=== PATIENT | male | born 1935 | race Caucasian/White ===

== ENCOUNTER 2016-07-14 06:59 | Observation (INO) | payer MEDICARE, OTHER ==
[2016-07-14] MEDS ORDERED: SODIUM CHLORIDE 0.9% 1,000 ML IV ONE ×3 (07:34→10:38)
[2016-07-14] MEDS ORDERED: KETOROLAC 15 MG/ML VIAL IVP STA (07:34)
[2016-07-14] MEDS ORDERED: ACETAMINOPHEN 1,000 MG/100 ML 100 ML IV STA (07:34)
[2016-07-14] MEDS ORDERED: ACETAMINOPHEN 1,000 MG/100 ML 100 ML IV ONE (07:47)
[2016-07-14] MEDS ORDERED: KETOROLAC 30 MG/ML VIAL ONE (07:47)
[2016-07-14] MEDS ORDERED: POTASSIUM BICARB 25 MEQ TABLET PO STA (08:59)
[2016-07-14] MEDS ORDERED: MAGNESIUM SULFATE 2 GRAM 50 ML IV ONE ×3 (08:59→19:06)
[2016-07-14] MEDS ORDERED: POTASSIUM BICARB 25 MEQ TABLET PO ONE (09:09)
[2016-07-14] MEDS ORDERED: DEXAMETHASONE 10 MG/ML VIAL IVP STA (09:23)
[2016-07-14] MEDS ORDERED: DEXAMETHASONE 10 MG/ML VIAL ONE (09:34)
[2016-07-14] MEDS ORDERED: DIVALPROEX DR 125 MG TABLET PO STA (10:38)
[2016-07-14] MEDS ORDERED: ONDANSETRON 4 MG/2 ML VIAL IVP PRN (12:55)
[2016-07-14] MEDS ORDERED: SODIUM CHLORIDE FLUSH 0.9% 10 ML SYRINGE IVP PRN (12:55)
[2016-07-14] MEDS ORDERED: ACETAMINOPHEN 325 MG TABLET PO PRN (12:55)
[2016-07-14] MEDS ORDERED: ZOLPIDEM 5 MG TABLET PO PRN (12:55)
[2016-07-14] MEDS ORDERED: IPRATROPIUM/ALBUTEROL 3 ML NEB INH PRN (12:55)
[2016-07-14] MEDS: MAGNESIUM OXIDE 400 MG TABLET PO SCH (13:33)
[2016-07-14] MEDS: SODIUM CHLORIDE 0.9% 1,000 ML IV SCH (13:39)
[2016-07-14] MEDS ORDERED: POTASSIUM CHLORIDE 20 MEQ TABLET PO ONE (14:00)
[2016-07-14] MEDS: SODIUM CHLORIDE FLUSH 0.9% 10 ML SYRINGE IVP SCH ×2 (14:06→20:21)
[2016-07-14] MEDS: OSELTAMIVIR 30 MG CAPSULE PO SCH ×2 (14:48→20:21)
[2016-07-14] MEDS: POTASSIUM CHLOR 10 MEQ/100 ML 100 ML IV SCH ×3 (20:19→23:45)
[2016-07-14] MEDS: OXYBUTYNIN 5MG TABLET PO SCH (20:20)
[2016-07-14] MEDS: TOPIRAMATE 100 MG TABLET PO SCH (20:20)
[2016-07-14] MEDS: levETIRAcetam 250 MG TABLET PO SCH (20:20)
[2016-07-14] MEDS: ATENOLOL 25 MG TABLET PO SCH (20:21)
[2016-07-14] MEDS: DOXAZOSIN 4 MG TABLET PO SCH (20:21)
[2016-07-14] MEDS: DIVALPROEX ER 250 MG TABLET PO SCH (20:21)
[2016-07-14] MEDS ORDERED: levETIRAcetam 250 MG TABLET PO SCH (21:00)
[2016-07-14] MEDS ORDERED: DIVALPROEX DR 250 MG TABLET PO SCH (21:00)
[2016-07-15] MEDS: SODIUM CHLORIDE 0.9% 1,000 ML IV SCH ×2 (02:14→11:08)
[2016-07-15] MEDS: SODIUM CHLORIDE FLUSH 0.9% 10 ML SYRINGE IVP SCH ×3 (06:35→20:44)
[2016-07-15] MEDS: PANTOPRAZOLE 40 MG TABLET PO SCH (06:35)
[2016-07-15] MEDS ORDERED: TOPIRAMATE 100 MG TABLET PO SCH (09:00)
[2016-07-15] MEDS ORDERED: POLYETHYLENE GLYCOL 3350 17 GM PACKET PO SCH (09:00)
[2016-07-15] MEDS ORDERED: DOXAZOSIN 1 MG TABLET PO SCH (09:00)
[2016-07-15] MEDS: MAGNESIUM OXIDE 400 MG TABLET PO SCH (10:56)
[2016-07-15] MEDS: MULTIVITAMIN TABLET PO SCH (10:57)
[2016-07-15] MEDS: ASPIRIN EC 81 MG TABLET PO SCH (10:58)
[2016-07-15] MEDS: ATENOLOL 25 MG TABLET PO SCH ×2 (10:58→20:35)
[2016-07-15] MEDS: DIVALPROEX ER 250 MG TABLET PO SCH ×2 (10:59→20:35)
[2016-07-15] MEDS: OSELTAMIVIR 30 MG CAPSULE PO SCH ×2 (10:59→20:35)
[2016-07-15] MEDS: OXYBUTYNIN 5MG TABLET PO SCH ×2 (11:00→20:35)
[2016-07-15] MEDS: ENOXAPARIN 40 MG/0.4 ML SYRINGE SUBQ SCH (11:02)
[2016-07-15] MEDS: levETIRAcetam 250 MG TABLET PO SCH ×2 (12:42→20:34)
[2016-07-15] MEDS: DOXAZOSIN 4 MG TABLET PO SCH (20:35)
[2016-07-15] MEDS: TOPIRAMATE 100 MG TABLET PO SCH (20:35)
[2016-07-16] MEDS: HYDROcod/ACETAM 5/325 MG TABLET PO PRN ×2 (00:47→06:32)
[2016-07-16] MEDS: PANTOPRAZOLE 40 MG TABLET PO SCH (06:32)
[2016-07-16] MEDS: SODIUM CHLORIDE FLUSH 0.9% 10 ML SYRINGE IVP SCH (06:32)
[2016-07-16] MEDS ORDERED: POTASSIUM CHLORIDE 20 MEQ TABLET PO SCH (08:00)
[2016-07-16] MEDS: DIVALPROEX ER 250 MG TABLET PO SCH (08:19)
[2016-07-16] MEDS: ASPIRIN EC 81 MG TABLET PO SCH (08:19)
[2016-07-16] MEDS: MULTIVITAMIN TABLET PO SCH (08:19)
[2016-07-16] MEDS: OXYBUTYNIN 5MG TABLET PO SCH (08:19)
[2016-07-16] MEDS: ENOXAPARIN 40 MG/0.4 ML SYRINGE SUBQ SCH (08:20)
[2016-07-16] MEDS: OSELTAMIVIR 30 MG CAPSULE PO SCH (08:20)
[2016-07-16] MEDS: ATENOLOL 25 MG TABLET PO SCH (08:20)
[2016-07-16] MEDS: levETIRAcetam 250 MG TABLET PO SCH (12:25)
[2016-07-16] MEDS ORDERED: CALCIUM CARBONATE CHEW 500 MG TABLET PO SCH (14:00)
== END 2016-07-16 15:45 | disposition home or self-care (01) ==
DX: R55 Syncope and collapse (principal); J10.1 Influenza due to other identified influenza virus with other respiratory manifestations; E86.0 Dehydration; G40.89 Other seizures; E87.6 Hypokalemia; J44.9 Chronic obstructive pulmonary disease, unspecified; I10 Essential (primary) hypertension; T42.6X6A Underdosing of other antiepileptic and sedative-hypnotic drugs, initial encounter; Z91.19 Patient's noncompliance with other medical treatment and regimen; Y92.009 Unspecified place in unspecified non-institutional (private) residence as the place of occurrence of the external cause; Z79.82 Long term (current) use of aspirin; Z79.51 Long term (current) use of inhaled steroids; Z79.899 Other long term (current) drug therapy
CPT/HCPCS: 36415; 71020; 80053; 80164; 83605; 83690; 83735; 84100; 84484; 85025; 87275; 87276; 93005; 93306; 96361; 96365; 96366; 96372; 96375; 97001; 97116; 97530; 99284; 99285; A9270; G0378; J0131; J1650

== ENCOUNTER 2019-01-07 17:47 | Outpatient (CLI) | payer MEDICARE, OTHER | END 2019-01-07 17:48 | disposition critical access hospital (66) | LOC: EMS 17:47 | PROVIDERS: ATTEND Surgery | DX: M79.89 Other specified soft tissue disorders (principal); M79.662 Pain in left lower leg; M79.661 Pain in right lower leg | CPT/HCPCS: A0425; A0429 ==

== ENCOUNTER 2019-01-07 18:10 | Inpatient (IN) | payer MEDICARE, OTHER ==
[2019-01-07] MEDS ORDERED: cefTRIAXone 1 GM in SODIUM CHLORIDE 0.9% MINIBAG 100 ML IV STA (18:22)
--- NOTE | 2019-01-07 18:24 | ED Physician Documentation ---
PD HPI WOUND RECHECK - Stated complaint Stated Complaint: LLE CELLULITIS - Histroy obtained from History obtained from: Patient - History of Present Illness Location: Other (Since yesterday he is had swelling of both calves and weeping especially from the left from cellulitis. No fevers.) Timing - onset: Yesterday Associated symptoms: Redness, Swelling, Drainage, Pain. No: Fever Similar symptoms before: Has not had sx before Review of Systems Ten Systems: 10 systems reviewed and negative Constitutional: denies: Fever, Chills Cardiac: reports: Reviewed and negative Respiratory: reports: Reviewed and negative : reports: Reviewed and negative PD PAST MEDICAL HISTORY - Past Medical History Cardiovascular: Hypertension Respiratory: COPD Endocrine/Autoimmune: None GI: None : None HEENT: None Psych: None Musculoskeletal: None Derm: None - Past Surgical History General: Cholecystectomy Ortho: Arthroscopic surgery HEENT: Cataracts - Present Medications Home Medications: Ambulatory Orders Medication Instructions Recorded Confirmed RX: Aspirin [Aspir-Low] 81 mg PO DAILY 07/14/16 07/14/16 RX: Atenolol 25 mg PO BID 07/14/16 07/14/16 RX: Divalproex ER [Depakote ER] 250 mg PO BID 07/14/16 07/14/16 RX: Doxazosin [Cardura] 4 mg PO QPM 07/14/16 07/14/16 RX: Ipratropium [Atrovent] 2 puffs INH Q4H PRN 07/14/16 07/14/16 RX: Levetiracetam [Keppra] 1,000 mg PO DAILY@1200 07/14/16 07/14/16 RX: Levetiracetam [Keppra] 1,500 mg PO QPM 07/14/16 07/14/16 RX: Multivitamin [Multivitamins] 1 tab PO DAILY 07/14/16 07/14/16 RX: Omeprazole 20 mg PO BID 07/14/16 07/14/16 RX: Oxybutynin [Ditropan] 5 mg PO BID 07/14/16 07/14/16 RX: Topiramate [Topamax] 200 mg PO QPM 07/14/16 07/14/16 RX: Triamcinolone Acetonide 2 puffs INH DAILY PRN 07/14/16 07/14/16 [Nasacort] RX: hydroCHLOROthiazide 25 mg PO DAILY 07/14/16 07/14/16 [Hydrochlorothiazide] RX: Acetaminophen [Tylenol] 650 mg PO Q4HR PRN #0 tablet 07/16/16 RX: Multivitamin [Theragran] 1 tab PO DAILYWM tablet 07/16/16 RX: Oseltamivir [Tamiflu] 30 mg PO BID 4 Days cap 07/16/16 - Allergies Allergies/Adverse Reactions: Allergies Allergy/AdvReac Type Severity Reaction Status Date / Time Penicillins Allergy Unknown Verified 07/14/16 10:44 ketamine AdvReac Unknown Verified 07/14/16 10:44 - Social History Does the pt smoke?: No Smoking Status: Former smoker Does the pt drink ETOH?: No Does the pt have substance abuse?: No - Immunizations Immunizations: TDAP >10years/unknown - POLST Patient has POLST: No PD ED PE NORMAL - Vitals Vital signs reviewed: Yes - General General: Alert and oriented X 3, No acute distress - HEENT HEENT: PERRL, EOMI - Neck Neck: Supple, no meningeal sign, No bony TTP - Cardiac Cardiac: RRR, No murmur - Respiratory Respiratory: No respiratory distress, Clear bilaterally - Abdomen Abdomen: Normal bowel sounds, Non tender - Derm Derm: Normal color, Warm and dry - Extremities Extremities: Other (Weeping cellulitis of left worse than right since lower extremity with some pedal edema. No calf tenderness. \) - Neuro Neuro: Alert and oriented X 3, Normal speech Results - Vitals Vitals: Vital Signs - 24 hr 01/07/19 01/07/19 01/07/19 18:22 18:28 20:14 Temperature 36.7 C Heart Rate 64 61 Respiratory 12 14 Rate Blood Pressure 167/74 H 156/76 H O2 Saturation 99 100 Oxygen O2 Source Room air - Labs Labs: Laboratory Tests 01/07/19 01/07/19 01/07/19 18:40 18:40 18:40 WBC 16.2 H RBC 3.35 L Hgb 9.6 L Hct 31.6 L MCV 94.3 H MCH 28.7 MCHC 30.4 L RDW 18.9 H Plt Count 185 MPV 11.1 Neut # (Auto) 15.2 H Lymph # (Auto) 0.6 L [place] # (Auto) 0.3 Eos # (Auto) 0.0 Baso # (Auto) 0.0 Absolute Nucleated RBC 0.00 Nucleated RBC % 0.0 Sodium 142 Potassium 4.2 Chloride 106 Carbon Dioxide 26 Anion Gap 10.0 BUN 47 H Creatinine 1.4 H Estimated GFR (MDRD) 49 L Glucose 156 H Lactic Acid Calcium 9.2 Total Bilirubin 0.5 AST 16 ALT 14 Alkaline Phosphatase 82 B-Natriuretic Peptide 90 Total Protein 6.0 L Albumin 3.0 L Globulin 3.0 Albumin/Globulin Ratio 1.0 Lipase 26 Blood Type Blood Type Recheck Antibody Screen Crossmatch IS Only 01/07/19 01/07/19 01/07/19 18:40 20:05 20:10 WBC RBC Hgb Hct MCV MCH MCHC RDW Plt Count MPV Neut # (Auto) Lymph # (Auto) [place] # (Auto) Eos # (Auto) Baso # (Auto) Absolute Nucleated RBC Nucleated RBC % Sodium Potassium Chloride Carbon Dioxide Anion Gap BUN Creatinine Estimated GFR (MDRD) Glucose Lactic Acid 1.0 Calcium Total Bilirubin AST ALT Alkaline Phosphatase B-Natriuretic Peptide Total Protein Albumin Globulin Albumin/Globulin Ratio Lipase Blood Type O POSITIVE Blood Type Recheck O POSITIVE Antibody Screen NEGATIVE Crossmatch IS Only See Detail PD MEDICAL DECISION MAKING - ED course ED course: 83-year-old gentleman presents with weeping cellulitis of both legs, left worse than right. He is found to have an elevated white blood cell count at 16,000 and a hemoglobin of 9.9, his baseline hemoglobin per old records is around 13. His BUN is up but his creatinine is stable. A rectal examination was done showing brown but very guaiac positive stool but without melena or right red blood. Spoke with the on-call surgeon, Dr. Enmanuel Spence who will consult if his hemoglobin trends down, otherwise feels like it is an outpatient work-up. Blood was readied but he does not need transfusion at this juncture. He was administered IV Protonix. Spoke with Dr. Rubio for admission at 7:58 PM. Departure - Departure Disposition: [facility] DC/Xfer Clinical Impression: Cellulitis, Occult GI bleeding Condition: Stable Discharge Date/Time: 01/07/19 21:10
[2019-01-07 18:49] LABS: BASOPHILS % (AUTO) 0.1 %; EOSINOPHILS % (AUTO) 0.2 %; HGB - HEMOGLOBIN 9.6 g/dL (14.0-18.0); LYMPHOCYTES # (AUTO) 0.6 10^3/uL (1.5-3.5); LYMPHOCYTES % (AUTO) 3.8 %; MEAN CORPUSCULAR HEMOGLOBIN 28.7 pg (27.0-31.0); MEAN CORPUSCULAR HGB CONC 30.4 g/dL (32.0-36.0); MEAN CORPUSCULAR VOLUME 94.3 fL (80.0-94.0); MEAN PLATELET VOLUME 11.1 fL (7.4-11.4); MONOCYTES # (AUTO) 0.3 10^3/uL (0.0-1.0); MONOCYTES % (AUTO) 1.5 %; NEUTROPHILS # (AUTO) 15.2 10^3/uL (1.5-6.6); NEUTROPHILS % (AUTO) 93.4 %; PLT - PLATELET COUNT 185 10^3/uL (130-450); RED BLOOD COUNT 3.35 10^6/uL (4.70-6.10); RED CELL DISTRIBUTION WIDTH 18.9 % (12.0-15.0); WHITE BLOOD COUNT 16.2 x10^3/uL (4.8-10.8)
[2019-01-07 19:02] LABS: BILIRUBIN,TOTAL 0.5 mg/dL (0.2-1.0); CALCIUM 9.2 mg/dL (8.5-10.3); CREATININE 1.4 mg/dL (0.6-1.2)
[2019-01-07] MEDS ORDERED: PANTOPRAZOLE 40 MG VIAL IVP STA (19:51)
--- NOTE | 2019-01-07 19:59 | Ultrasound Report ---
Reason: B leg swelling Procedure Date: 01/07/2019 Accession Number: [id number] / [id number] Procedure: US - Duplex Ext Veins Bilateral CPT Code: FULL RESULT: EXAM: BILATERAL LOWER EXTREMITY VENOUS ULTRASOUND EXAM DATE: 01/07/2019 07:33 PM. CLINICAL HISTORY: Lower extremity swelling COMPARISON: None. TECHNIQUE: Real-time sonographic vascular imaging was performed by the photography teacher through the lower extremities utilizing both color-flow and Doppler spectral analysis. Multiple personnel representative static images were saved for review. FINDINGS: Right: Common Femoral Vein (CFV): Normal. CFV-GSV Junction: Normal. Profunda Femoral Vein (PFV): Normal. Femoral Vein (FV) Prox: Normal. Femoral Vein (FV) Mid: Normal. Femoral Vein (FV) Dist: Normal. Popliteal Vein: Normal. Posterior Tibial Veins: Normal. Peroneal Veins: Normal. Left: Common Femoral Vein (CFV): Normal. CFV-GSV Junction: Normal. Profunda Femoral Vein (PFV): Normal. Femoral Vein (FV) Prox: Normal. Femoral Vein (FV) Mid: Normal. Femoral Vein (FV) Dist: Normal. Popliteal Vein: Normal. Posterior Tibial Veins: Normal. Peroneal Veins: Normal. Other: There is lower extremity edema. IMPRESSION: No evidence for deep venous thrombosis bilaterally. RADIA
[2019-01-07] MEDS ORDERED: ONDANSETRON ODT 4 MG TABLET TL PRN (20:20)
[2019-01-07] MEDS ORDERED: PROCHLORPERAZINE 10 MG/2 ML VIAL IVP PRN (20:20)
[2019-01-07] MEDS ORDERED: FUROSEMIDE 20 MG/2 ML VIAL IVP STA (20:39)
[2019-01-07] MEDS ORDERED: IPRATROPIUM/ALBUTEROL 3 ML NEB INH PRN (20:41)
--- NOTE | 2019-01-07 20:52 | HISTORY & PHYSICAL EXAMINATION ---
Chief Complaint - Chief Complaint Chief Complaint: Shortness of breath, Bilateral leg swelling, Fatigue and weakness History of Present Illness - Admitted From Admitted From:: ED - History Obtained From Records Reviewed: yes History obtained from: patient Exam Limitations: none - History of Present Illness HPI Comment/Other: This is a 83-year-old with a past medical history of hypertension, COPD, seizure disorder, abdominal surgery that consisted of a perforated small bowel as a result of multiple abscesses 2 years prior, surgeries performed in [place], history of nephrolithiasis, chronic kidney disease stage III, who presents with approximately 1 day history of bilateral lower extremity swelling with associated numbness, pain to left more than right, without any history of trauma, Mentions some orthopnea with dyspnea on exertion without chest pain. Patient states that he has been feeling some weakness as of late with no mention of melena, hematochezia, hematemesis. Patient denies drinking and has never had a colonoscopy. Patient mentions left more than right swelling without redness. Patient was given 1 dose of IV Rocephin in the ED, CBC shows a WBC count of 16.2, hemoglobin 9.9 with a baseline of 13.1 and macrocytosis, ultrasound did not reveal DVT. Creatinine was at 1.4 with a baseline ranging between 1.3-1.7, BNP 90, LFTs within normal limits. On examination bilateral lower extremity weepiness with some serous fluid, unable to ascertain 2+ pulses dorsalis pedis due to market pedal edema. Surgery was called for patient's guaiac positive and recommendations for serial monitoring. IV PPI given in ED and to be continued, admission warranted. History - Past Medical History Cardiovascular: reports: Hypertension Respiratory: reports: COPD Endocrine/Autoimmune: reports: None GI: reports: None : reports: None HEENT: reports: None Psych: reports: None Musculoskeletal: reports: None Derm: reports: None MRSA Hx?: No - Past Surgical History General: reports: Cholecystectomy, Other (Abscesses to small intestine with perforation and resection in [place] 2yrs prior) Ortho: reports: Arthroscopic surgery HEENT: reports: Cataracts - POLST Patient has POLST: No Meds/Allgy - Home Medications Home Medications: Ambulatory Orders Medication Instructions Recorded Confirmed Aspirin [Aspir-Low] 81 mg PO DAILY 07/14/16 07/14/16 Atenolol 25 mg PO BID 07/14/16 07/14/16 Divalproex ER [Depakote ER] 250 mg PO BID 07/14/16 07/14/16 Doxazosin [Cardura] 4 mg PO QPM 07/14/16 07/14/16 Ipratropium [Atrovent] 2 puffs INH Q4H PRN 07/14/16 07/14/16 Levetiracetam [Keppra] 1,000 mg PO DAILY@1200 07/14/16 07/14/16 Levetiracetam [Keppra] 1,500 mg PO QPM 07/14/16 07/14/16 Multivitamin [Multivitamins] 1 tab PO DAILY 07/14/16 07/14/16 Omeprazole 20 mg PO BID 07/14/16 07/14/16 Oxybutynin [Ditropan] 5 mg PO BID 07/14/16 07/14/16 Topiramate [Topamax] 200 mg PO QPM 07/14/16 07/14/16 Triamcinolone Acetonide [Nasacort] 2 puffs INH DAILY PRN 07/14/16 07/14/16 hydroCHLOROthiazide 25 mg PO DAILY 07/14/16 07/14/16 [Hydrochlorothiazide] Acetaminophen [Tylenol] 650 mg PO Q4HR PRN #0 tablet 07/16/16 Multivitamin [Theragran] 1 tab PO DAILYWM tablet 07/16/16 Oseltamivir [Tamiflu] 30 mg PO BID 4 Days cap 07/16/16 - Allergies Allergies/Adverse Reactions: Allergies Allergy/AdvReac Type Severity Reaction Status Date / Time Penicillins Allergy Unknown Verified 07/14/16 10:44 ketamine AdvReac Unknown Verified 07/14/16 10:44 Review of Systems - All Other Systems All Other Systems: reports: Reviewed and negative Prior Level of Functionality: Patient's prior functional capacity and home ADLs adequate Exam - Vital Signs Reviewed Vital Signs: Yes Vital Signs: Vital Signs x48h Temp Pulse Resp BP Pulse Ox 01/07/19 20:14 61 14 156/76 H 100 01/07/19 18:28 36.7 C 01/07/19 18:22 64 12 167/74 H 99 - Physical Exam General Appearance: positive: No acute distress, Alert, Other (Weakness) Eyes Bilateral: positive: Normal inspection, PERRL, EOMI, Other (Mild conjunctival pallor). negative: No scleral icterus ENT: positive: ENT inspection nml, Pharynx nml, No signs of dehydration Neck: positive: Nml inspection, Thyroid nml, No JVD, Trachea midline. negative: Thyromegaly Respiratory: positive: Chest non-tender, No respiratory distress, Rales (Faint bibasilar rales) Cardiovascular: positive: Regular rate & rhythm, No gallop Peripheral Pulses: positive: 0, Other (Unable to ascertain due to pedal edema) Abdomen: positive: Non-tender, No organomegaly, Nml bowel sounds, No distention. negative: Tenderness Skin: positive: No rash, Pallor, Other (Cool to bilateral lower extremities. Weeping bilateral lower extremity serous appearance) Extremities: positive: Full ROM, Pedal edema, Other (Left greater than right weeping serous discharge without necrotic ulcerations left greater than right.). negative: Calf tenderness, Joint swelling, Dulce's sign/cords Neurologic/Psychiatric: positive: Oriented x3, CN's nml (2-12) Sepsis Event Note (H) - Evaluation Possible source of Sepsis: positive: Skin/soft tissue - Sepsis Criteria Sepsis Criteria: WBC count greater than 12,000 or less than 4000 Conclusion/Plan - Problem List (1) Bilateral lower extremity edema Conclusion/Plan: Patient presenting with bilateral lower extremity numbness with associated edema which initially thought to be cellulitis given the white count at 16 K, pain to left lower extremity with an ultrasound showing negative. Unclear at this point if this is infection. However, was given 1 dose of Rocephin IV. 2 sets of blood cultures obtained. Patient does not have a fever or other signs and symptoms of sepsis at this point. Likely pointing in the direction of underlying peripheral arterial disease combined with pedal edema that may come from diastolic heart failure despite BNP of 90. Echocardiogram to follow. Contraindication for SCDs in the setting of edema as well as heparin in the setting of patient's anemia. Placed on Lasix 40 mg p.o. daily. Wound care to follow, as well as arterial doppler with flow. (2) Interstitial edema Conclusion/Plan: Patient's chest x-ray shows right midlung interstitial edema. In the setting of an elevated white count this may represent pneumonia, however patient denies fever cough and does mention shortness of breath and dyspnea on exertion that may be related to diastolic heart failure. Patient will be on Lasix for diuresis. Echocardiogram to follow. Defer off IV antibiotics for now. Qualifiers: Edema type: unspecified Qualified Code(s): R60.9 - Edema, unspecified (3) Occult GI bleeding Conclusion/Plan: Patient does have a history of abdominal surgeries in the past, Including small bowel resection for prior abscesses, in [place], [place] 2 years prior. Patient denies having a prior endoscopy or colonoscopy in the past. Guaiac positive in the ER, may be related to internal hemorrhoids versus chronic GI blood loss anemia. Patient's prior hemoglobin was 13.1. Would defer off aspirin or DVT prophylaxis with heparin/Lovenox for now. Would place on IV PPI plus Carafate. General surgery to consult for possible colonoscopy if drops in H&H observed. (4) Chronic kidney disease, stage III (moderate) Conclusion/Plan: Patient's prior baseline is 1.3-1.7. Avoid nephrotoxic agents, h ydrochlorothiazide on hold, will be on Lasix due to pedal edema, correct underlying electrolyte disturbances. (5) General weakness Conclusion/Plan: Multifactorial at this point. Work-up in progress. Consider PT/OT. (6) Hypertension, uncontrolled Conclusion/Plan: Will place on IV hydralazine prn and depending if diastolic heart failure is underlying, may benefit from afterload reduction. (7) Macrocytic anemia Conclusion/Plan: Guaiac positive in the ED. Multifactorial with possible underlying anemia of chronic disease. Will check TSH, iron, B12, folic acid. Will check TSH, iron, B12, folic acid. Transfuse <8 g/dl for now. (8) Advanced care planning/counseling discussion Conclusion/Plan: Advance care planning with medical conditions, goal of care and trajectory of illness discussed and has elected on full code status for reversible causes of illnesses. - Lab Results Lab results reviewed: Yes Fish Bones: 01/07/19 18:40 01/07/19 18:40 - Diagnostic Imaging Results Diagnostic Imaging Results: positive: Final report reviewed - EKG Results EKG Interpreted Independently: No
--- NOTE | 2019-01-07 21:39 | XRAY Report ---
Reason: rales with SOB Procedure Date: 01/07/2019 Accession Number: [id number] / [id number] Procedure: XR - Chest 1 View X-Ray CPT Code: 98515 FULL RESULT: EXAM: CHEST RADIOGRAPHY EXAM DATE: 01/07/2019 09:31 PM. CLINICAL HISTORY: Rales with SOB. COMPARISON: CHEST 2 VIEW PA/LAT 07/14/2016 8:32 AM. TECHNIQUE: 1 view. FINDINGS: Lungs/Pleura: The lungs are hyperinflated. There are bullae and blebs. There is an new interstitial infiltrate in the right mid lung. There are no pleural effusions. Mediastinum: Within exam limitations, the cardiomediastinal contour is normal. Other: None. IMPRESSION: 1. Hyperinflated lungs. 2. Interstitial infiltrate in the right mid lung new compared to the prior exam. RADIA
[2019-01-07] MEDS: SUCRALFATE 1 GM/10 ML UDC PO SCH (22:02)
[2019-01-07] MEDS ORDERED: hydrALAZINE INJ 20 MG/ML VIAL IVP PRN (22:37)
[2019-01-08 05:56] LABS: ALBUMIN 2.7 g/dL (3.2-5.5); CREATININE 1.4 mg/dL (0.6-1.2); PHOSPHORUS 3.3 mg/dL (2.5-4.6)
[2019-01-08 05:57] LABS: BASOPHILS % (AUTO) 0.1 %; EOSINOPHILS # (AUTO) 0.1 10^3/uL (0.0-0.7); EOSINOPHILS % (AUTO) 0.5 %; HGB - HEMOGLOBIN 8.8 g/dL (14.0-18.0); LYMPHOCYTES # (AUTO) 1.2 10^3/uL (1.5-3.5); MEAN CORPUSCULAR HEMOGLOBIN 28.1 pg (27.0-31.0); MEAN CORPUSCULAR HGB CONC 30.6 g/dL (32.0-36.0); MEAN PLATELET VOLUME 11.5 fL (7.4-11.4); MONOCYTES # (AUTO) 0.8 10^3/uL (0.0-1.0); MONOCYTES % (AUTO) 5.7 %; NEUTROPHILS # (AUTO) 12.2 10^3/uL (1.5-6.6); NEUTROPHILS % (AUTO) 84.9 %; PLT - PLATELET COUNT 180 10^3/uL (130-450); RED BLOOD COUNT 3.13 10^6/uL (4.70-6.10); RED CELL DISTRIBUTION WIDTH 18.7 % (12.0-15.0); WHITE BLOOD COUNT 14.3 x10^3/uL (4.8-10.8)
[2019-01-08 06:10] LABS: % IRON SATURATION 13 % (20-50); IRON 36 ug/dL (45-182); TOTAL IRON BINDING CAPACITY 274 ug/dL (250-450); TRANSFERRIN 196 mg/dL (180-329)
[2019-01-08 06:17] LABS: THYROID STIMULATING HORMONE 2.73 uIU/mL (0.34-5.60)
[2019-01-08 06:28] LABS: FOLATE 11.13 ng/mL (5.90 - >24.8)
[2019-01-08] MEDS: PANTOPRAZOLE 40 MG VIAL IVP SCH (08:03)
[2019-01-08] MEDS: SUCRALFATE 1 GM/10 ML UDC PO SCH ×4 (08:03→21:14)
[2019-01-08] MEDS: SODIUM CHLORIDE FLUSH 0.9% 10 ML SYRINGE IVP SCH ×3 (08:03→17:11)
--- NOTE | 2019-01-08 08:19 | PROVIDER PROGRESS NOTE ---
Subjective - Prog Note Date Prog Note Date: 01/08/19 Prog Note Time: 08:36 - Subjective Pt reports feeling: No change Subjective: he's tired. legs have been hurting so much for 3 days and now leg cramps are "killing" him. Current Medications - Current Medications Current Medications: Active Medications Hydrocodone Bitart/Acetaminophen (Elkins 5/325) 1 tab PO Q4HR PRN PRN Reason: PAIN Albuterol/Ipratropium (Duoneb) 3 ml INH Q4HR PRN PRN Reason: Wheezing Amlodipine Besylate (Norvasc) 5 mg PO DAILY [facility] Doxazosin Mesylate (Cardura) 4 mg PO QPM [facility] Furosemide (Lasix) 40 mg PO DAILY [facility] Hydralazine HCl (Apresoline Inj) 10 mg IVP Q4HR PRN PRN Reason: sbp>160 Magnesium Sulfate 1 gm/ Sodium (Chloride) 52 mls @ 54 mls/hr IV ONCE ONE Stop: 01/08/19 09:33 Ondansetron HCl (Zofran Odt) 4 mg TL Q6HR PRN PRN Reason: Nausea / Vomiting Pantoprazole Sodium (Protonix) 40 mg IVP QDAC [facility] Last Admin: 01/08/19 08:03 Dose: Not Given Polyethylene Glycol (Miralax) 17 gm PO DAILY [facility] Prochlorperazine Edisylate (Compazine Inj) 10 mg IVP Q6HR PRN PRN Reason: Nausea / Vomiting Sodium Chloride (Normal Saline Flush 0.9%) 10 ml IVP PRN PRN PRN Reason: NEEDED PER PROVIDER ORDERS Sodium Chloride (Normal Saline Flush 0.9%) 10 ml IVP 0100,0900,1700 [facility] Last Admin: 01/08/19 08:03 Dose: Not Given Sucralfate (Carafate) 1 gm PO 0700,1100,1600,2200 [facility] Last Admin: 01/08/19 08:03 Dose: Not Given Aspirin [Aspir-Low] 81 mg PO DAILY 07/14/16 Atenolol 25 mg PO BID 07/14/16 Divalproex ER [Depakote ER] 250 mg PO BID 07/14/16 Doxazosin [Cardura] 4 mg PO QPM 07/14/16 Ipratropium [Atrovent] 2 puffs INH Q4H PRN 07/14/16 Levetiracetam [Keppra] 1,000 mg PO DAILY@1200 07/14/16 Levetiracetam [Keppra] 1,500 mg PO QPM 07/14/16 Multivitamin [Multivitamins] 1 tab PO DAILY 07/14/16 Omeprazole 20 mg PO BID 07/14/16 Oxybutynin [Ditropan] 5 mg PO BID 07/14/16 Topiramate [Topamax] 200 mg PO QPM 07/14/16 Triamcinolone Acetonide [Nasacort] 2 puffs INH DAILY PRN 07/14/16 hydroCHLOROthiazide [Hydrochlorothiazide] 25 mg PO DAILY 07/14/16 Objective - Vital Signs/Intake & Output Reviewed Vital Signs: Yes Intake & Output: Intake & Output 01/05/19 01/06/19 01/07/19 01/08/19 23:59 23:59 23:59 23:59 Intake Total 100 Output Total 1205 Balance -1105 - Objective General Appearance: positive: Alert, Other (thin, small framed, thin balding elderly male with low, hoarse voice, glasses, grimacing w leg cramps) Eyes Bilateral: positive: PERRL ENT: positive: Pharynx nml Neck: positive: No JVD Respiratory: positive: Chest non-tender. negative: Wheezes, Rales, Rhonchi Cardiovascular: positive: Regular rate & rhythm, Systolic murmur. negative: G allop/S4, Friction rub Abdomen: positive: Non-tender, No organomegaly, Nml bowel sounds, No distention, Other (just finished most of his breakfast except for the waffle) Skin: positive: Other (legs with rubor/discoloration of shins. tight skin overal l, oozing legs. painful even to touch or move) Extremities: positive: Pedal edema (painful) Neurologic/Psychiatric: positive: Oriented x3, CN's nml (2-12), Motor nml - Lab Results Fish Bones: 01/08/19 05:15 01/08/19 05:15 Other Labs: Lab Results x24hrs 01/08/19 01/08/19 01/08/19 Range/Units 05:15 05:15 05:15 WBC 14.3 H (4.8-10.8) x10^3/uL RBC 3.13 L (4.70-6.10) 10^6/uL Hgb 8.8 L (14.0-18.0) g/dL Hct 28.8 L (42.0-52.0) % MCV 92.0 (80.0-94.0) fL MCH 28.1 (27.0-31.0) pg MCHC 30.6 L (32.0-36.0) g/dL RDW 18.7 H (12.0-15.0) % Plt Count 180 (130-450) 10^3/uL MPV 11.5 H (7.4-11.4) fL Neut # (Auto) 12.2 H (1.5-6.6) 10^3/uL Lymph # (Auto) 1.2 L (1.5-3.5) 10^3/uL [place] # (Auto) 0.8 (0.0-1.0) 10^3/uL Eos # (Auto) 0.1 (0.0-0.7) 10^3/uL Baso # (Auto) 0.0 (0.0-0.1) 10^3/uL Absolute Nucleated RBC 0.00 x10^3/uL Nucleated RBC % 0.0 /100WBC Sodium 144 (135-145) mmol/L Potassium 3.8 (3.5-5.0) mmol/L Chloride 106 (101-111) mmol/L Carbon Dioxide 30 (21-32) mmol/L Anion Gap 8.0 (6-13) BUN 46 H (6-20) mg/dL Creatinine 1.4 H (0.6-1.2) mg/dL Estimated GFR (MDRD) 49 L (>89) Glucose 107 H (70-100) mg/dL Lactic Acid (0.5-2.2) mmol/L Calcium 9.0 (8.5-10.3) mg/dL Phosphorus 3.3 (2.5-4.6) mg/dL Iron (45-182) ug/dL TIBC (250-450) ug/dL % Saturation (20-50) % Transferrin (180-329) mg/dL Total Bilirubin (0.2-1.0) mg/dL AST (10-42) IU/L ALT (10-60) IU/L Alkaline Phosphatase (42-121) IU/L B-Natriuretic Peptide (5-100) pg/mL Total Protein (6.7-8.2) g/dL Albumin 2.7 L (3.2-5.5) g/dL Globulin (2.1-4.2) g/dL Albumin/Globulin Ratio (1.0-2.2) Lipase (22-51) U/L Vitamin B12 < 50 L (180-914) pg/mL Folate 11.13 (5.90 - >24.8) ng/mL TSH 2.73 (0.34-5.60) uIU/mL Blood Type Blood Type Recheck Antibody Screen Crossmatch IS Only 01/08/19 01/07/19 01/07/19 Range/Units 05:15 20:10 20:05 WBC (4.8-10.8) x10^3/uL RBC (4.70-6.10) 10^6/uL Hgb (14.0-18.0) g/dL Hct (42.0-52.0) % MCV (80.0-94.0) fL MCH (27.0-31.0) pg MCHC (32.0-36.0) g/dL RDW (12.0-15.0) % Plt Count (130-450) 10^3/uL MPV (7.4-11.4) fL Neut # (Auto) (1.5-6.6) 10^3/uL Lymph # (Auto) (1.5-3.5) 10^3/uL [place] # (Auto) (0.0-1.0) 10^3/uL Eos # (Auto) (0.0-0.7) 10^3/uL Baso # (Auto) (0.0-0.1) 10^3/uL Absolute Nucleated RBC x10^3/uL Nucleated RBC % /100WBC Sodium (135-145) mmol/L Potassium (3.5-5.0) mmol/L Chloride (101-111) mmol/L Carbon Dioxide (21-32) mmol/L Anion Gap (6-13) BUN (6-20) mg/dL Creatinine (0.6-1.2) mg/dL Estimated GFR (MDRD) (>89) Glucose (70-100) mg/dL Lactic Acid (0.5-2.2) mmol/L Calcium (8.5-10.3) mg/dL Phosphorus (2.5-4.6) mg/dL Iron 36 L (45-182) ug/dL TIBC 274 (250-450) ug/dL % Saturation 13 L (20-50) % Transferrin 196 (180-329) mg/dL Total Bilirubin (0.2-1.0) mg/dL AST (10-42) IU/L ALT (10-60) IU/L Alkaline Phosphatase (42-121) IU/L B-Natriuretic Peptide (5-100) pg/mL Total Protein (6.7-8.2) g/dL Albumin (3.2-5.5) g/dL Globulin (2.1-4.2) g/dL Albumin/Globulin Ratio (1.0-2.2) Lipase (22-51) U/L Vitamin B12 (180-914) pg/mL Folate (5.90 - >24.8) ng/mL TSH (0.34-5.60) uIU/mL Blood Type O POSITIVE Blood Type Recheck O POSITIVE Antibody Screen NEGATIVE Crossmatch IS Only See Detail 01/07/19 01/07/19 01/07/19 Range/Units 18:40 18:40 18:40 WBC (4.8-10.8) x10^3/uL RBC (4.70-6.10) 10^6/uL Hgb (14.0-18.0) g/dL Hct (42.0-52.0) % MCV (80.0-94.0) fL MCH (27.0-31.0) pg MCHC (32.0-36.0) g/dL RDW (12.0-15.0) % Plt Count (130-450) 10^3/uL MPV (7.4-11.4) fL Neut # (Auto) (1.5-6.6) 10^3/uL Lymph # (Auto) (1.5-3.5) 10^3/uL [place] # (Auto) (0.0-1.0) 10^3/uL Eos # (Auto) (0.0-0.7) 10^3/uL Baso # (Auto) (0.0-0.1) 10^3/uL Absolute Nucleated RBC x10^3/uL Nucleated RBC % /100WBC Sodium 142 (135-145) mmol/L Potassium 4.2 (3.5-5.0) mmol/L Chloride 106 (101-111) mmol/L Carbon Dioxide 26 (21-32) mmol/L Anion Gap 10.0 (6-13) BUN 47 H (6-20) mg/dL Creatinine 1.4 H (0.6-1.2) mg/dL Estimated GFR (MDRD) 49 L (>89) Glucose 156 H (70-100) mg/dL Lactic Acid 1.0 (0.5-2.2) mmol/L Calcium 9.2 (8.5-10.3) mg/dL Phosphorus (2.5-4.6) mg/dL Iron (45-182) ug/dL TIBC (250-450) ug/dL % Saturation (20-50) % Transferrin (180-329) mg/dL Total Bilirubin 0.5 (0.2-1.0) mg/dL AST 16 (10-42) IU/L ALT 14 (10-60) IU/L Alkaline Phosphatase 82 (42-121) IU/L B-Natriuretic Peptide 90 (5-100) pg/mL Total Protein 6.0 L (6.7-8.2) g/dL Albumin 3.0 L (3.2-5.5) g/dL Globulin 3.0 (2.1-4.2) g/dL Albumin/Globulin Ratio 1.0 (1.0-2.2) Lipase 26 (22-51) U/L Vitamin B12 (180-914) pg/mL Folate (5.90 - >24.8) ng/mL TSH (0.34-5.60) uIU/mL Blood Type Blood Type Recheck Antibody Screen Crossmatch IS Only 01/07/19 Range/Units 18:40 WBC 16.2 H (4.8-10.8) x10^3/uL RBC 3.35 L (4.70-6.10) 10^6/uL Hgb 9.6 L (14.0-18.0) g/dL Hct 31.6 L (42.0-52.0) % MCV 94.3 H (80.0-94.0) fL MCH 28.7 (27.0-31.0) pg MCHC 30.4 L (32.0-36.0) g/dL RDW 18.9 H (12.0-15.0) % Plt Count 185 (130-450) 10^3/uL MPV 11.1 (7.4-11.4) fL Neut # (Auto) 15.2 H (1.5-6.6) 10^3/uL Lymph # (Auto) 0.6 L (1.5-3.5) 10^3/uL [place] # (Auto) 0.3 (0.0-1.0) 10^3/uL Eos # (Auto) 0.0 (0.0-0.7) 10^3/uL Baso # (Auto) 0.0 (0.0-0.1) 10^3/uL Absolute Nucleated RBC 0.00 x10^3/uL Nucleated RBC % 0.0 /100WBC Sodium (135-145) mmol/L Potassium (3.5-5.0) mmol/L Chloride (101-111) mmol/L Carbon Dioxide (21-32) mmol/L Anion Gap (6-13) BUN (6-20) mg/dL Creatinine (0.6-1.2) mg/dL Estimated GFR (MDRD) (>89) Glucose (70-100) mg/dL Lactic Acid (0.5-2.2) mmol/L Calcium (8.5-10.3) mg/dL Phosphorus (2.5-4.6) mg/dL Iron (45-182) ug/dL TIBC (250-450) ug/dL % Saturation (20-50) % Transferrin (180-329) mg/dL Total Bilirubin (0.2-1.0) mg/dL AST (10-42) IU/L ALT (10-60) IU/L Alkaline Phosphatase (42-121) IU/L B-Natriuretic Peptide (5-100) pg/mL Total Protein (6.7-8.2) g/dL Albumin (3.2-5.5) g/dL Globulin (2.1-4.2) g/dL Albumin/Globulin Ratio (1.0-2.2) Lipase (22-51) U/L Vitamin B12 (180-914) pg/mL Folate (5.90 - >24.8) ng/mL TSH (0.34-5.60) uIU/mL Blood Type Blood Type Recheck Antibody Screen Crossmatch IS Only ABX Reporting Has patient been on IV antibiotics over the past 48 hours?: Yes Sepsis Event Note (H) - Evaluation Possible source of Sepsis: positive: Skin/soft tissue - Sepsis Criteria Sepsis Criteria: WBC count greater than 12,000 or less than 4000 Assessment/Plan - Problem List (1) Bilateral lower extremity edema Impression: Patient presenting with bilateral lower extremity numbness with associated edema which initially thought to be cellulitis given the white count at 16 K, pain to left lower extremity with an venous ultrasound showing negative. Unclear at this point if this is infection. However, was given 1 dose of Rocephin IV. 2 sets of blood cultures obtained. Patient does not have a fever or other signs and symptoms of sepsis at this point. Likely pointing in the direction of underlying peripheral arterial disease combined with pedal edema that may come from diastolic heart failure despite BNP of 90. Echocardiogram to follow. Contraindication for SCDs in the setting of edema as well as heparin in the setting of patient's anemia. Placed on Lasix 40 mg p.o. daily. Wound care to follow, as well as arterial doppler with flow. Cramps of muscles also present. He is (-)1205 for output for overall I/O (-)1105 for 24 hours. Plan: continue to hold off on abx treat as chf elevated legs check OFELIA 1 gram of magnesium sulfate (2) Interstitial edema Conclusion/Plan: Patient's chest x-ray shows right midlung interstitial edema. In the setting of an elevated white count this may represent pneumonia, however patient denies fever cough and does mention shortness of breath and dyspnea on exertion that may be related to diastolic heart failure. Patient will be on Lasix for diuresis. Echocardiogram to follow. Defer off IV antibiotics for now. Plan: treat as CHF followup on today's echo Qualifiers: Edema type: unspecified Qualified Code(s): R60.9 - Edema, unspecified (3) Occult GI bleeding Conclusion/Plan: Patient does have a history of abdominal surgeries in the past, Including small bowel resection for prior abscesses, in [place], [place] 2 years prior. Stacy jeffers denies having a prior endoscopy or colonoscopy in the past. Guaiac positive in the ER, may be related to internal hemorrhoids versus chronic GI blood loss anemia. Patient's prior hemoglobin was 13.1. Would defer off aspirin or DVT prophylaxis with heparin/Lovenox for now. Would place on IV PPI plus Carafate. General surgery to consult for possible colonoscopy if drops in H&H observed. This morning Hgb 9.6>8.8 (4) Chronic kidney disease, stage III (moderate) Conclusion/Plan: Patient's prior baseline is 1.3-1.7. Avoid nephrotoxic agents, hydrochlorothiazide on hold, will be on Lasix due to pedal edema, correct underlying electrolyte disturbances. (5) General weakness Conclusion/Plan: Multifactorial at this point. Work-up in progress. Consider PT/OT. (6) Hypertension, uncontrolled Conclusion/Plan: Will place on IV hydralazine prn and depending if diastolic heart failure is underlying, may benefit from afterload reduction. (7) Macrocytic anemia Conclusion/Plan: Guaiac positive in the ED. Multifactorial with possible underlying anemia of chronic disease. Will check TSH, iron, B12, folic acid. Transfuse <8 g/dl for now.
--- NOTE | 2019-01-08 09:28 | ADVANCE CARE PLANNING NOTE ---
Advance Care Planning - Date/Time Date: 01/08/19 - Purpose of encounter Text: To determine goals of care in regards to patient's personal values, beliefs in relation to current medical conditions, provider burden and trajectory of illness. - Parties in attendance Parties in attendance: Patient and his - Decisional capacity Decisional capacity of: Patient has good decisional-making capacity - Subjective/Patient's story Subjective/Patient's story: Patient states he has a good support system with his family, takes care of him and he usually has help at home, has not fallen to ground but admits to progessive weakness along with edema to legs with pain and numbness that keeps him from doing normal day to day activities. He often gets frustrated with having to have his labs drawn and being admitted. He is optimistic of getting back home and improving his health. He is currently not ready to discuss end of life choices or to update hid POSLT in terms of resuscitative efforts in case of cardiopulmonary arrest scenarios. - Objective/Medical story Objective/Medical Story: This is a 83-year-old with a past medical history of hypertension, COPD, seizure disorder, abdominal surgery that consisted of a perforated small bowel as a result of multiple abscesses 2 years prior, surgeries performed in [place], history of nephrolithiasis, chronic kidney disease stage III, who presents with approximately 1 day history of bilateral lower extremity swelling with associated numbness, pain to left more than right, without any history of trauma, Mentions some orthopnea with dyspnea on exertion without chest pain. Patient states that he has been feeling some weakness as of late with no mention of melena, hematochezia, hematemesis. Patient denies drinking and has never had a colonoscopy. Patient mentions left more than right swelling without redness. Patient was given 1 dose of IV Rocephin in the ED, CBC shows a WBC count of 16.2, hemoglobin 9.9 with a baseline of 13.1 and macrocytosis, ultrasound did not reveal DVT. Creatinine was at 1.4 with a baseline ranging between 1.3-1.7, BNP 90, LFTs within normal limits. On examination bilateral lower extremity weepiness with some serous fluid, unable to ascertain 2+ pulses dorsalis pedis due to market pedal edema. Surgery was called for patient's guaiac positive and recommendations for serial monitoring. IV PPI given in ED and to be continued, admission warranted. - Goals of Care Goals of care determinations: Goals of care determination to be further assessed in regards to his current medications and long-term prognosis, trajectory of illness, provider burden and complications that may arise from current admission if further renal or CV impairment is seen. Medical mgmt to continue and further workup to determine extent of medical conditions and whether palliative care services would be appropriate. - Plan Plan: To continue with medical and supportive care as it pertains to his current active medical conditions and assess complications that may worsen his overall prognosis, or increase mortality/morbidity, for which palliative care services would be appropriate - Code Status Code Status: Attempt Resuscitation - Time Spent on Advance Care Planning Time spent on advance care plannin min - Other Other comments: Consider Palliative care services
[2019-01-08] MEDS: MAGNESIUM SULFATE 1 GM in SODIUM CHLORIDE 0.9% 50 ML IV ONE ×2 (12:15→13:51)
[2019-01-08] MEDS ORDERED: SODIUM CHLORIDE 0.9% 250 ML IV ONE (12:15)
[2019-01-08] MEDS: amLODIPine 5 MG TABLET PO SCH (12:16)
[2019-01-08] MEDS: FUROSEMIDE 40 MG TABLET PO SCH (12:16)
[2019-01-08] MEDS: HYDROcod/ACETAM 5/325 MG TABLET PO PRN ×3 (12:16→21:13)
[2019-01-08] MEDS: POLYETHYLENE GLYCOL 3350 17 GM PACKET PO SCH ×2 (12:16→12:19)
[2019-01-08] MEDS: MULTIVITAMIN W/MINERALS TABLET PO SCH (12:16)
--- NOTE | 2019-01-08 13:52 | CONSULTATION NOTE ---
Consultation Report: Call to [phone] for IV start after multiple failed attempts. US used to access L basilic v. with 20ga 1.88" IV attemptx1. Aspirates and flushes easily. Secured with tegaderm/tape. Pt tolerated procedure without complication. Reported to primary RN
[2019-01-08] MEDS: SACCHAROMYCES BOULARDII 250 MG CAPSULE PO SCH (17:11)
[2019-01-08] MEDS: DOXAZOSIN 4 MG TABLET PO SCH (21:13)
[2019-01-09 05:39] LABS: BASOPHILS % (AUTO) 0.1 %; EOSINOPHILS # (AUTO) 0.5 10^3/uL (0.0-0.7); EOSINOPHILS % (AUTO) 5.2 %; HGB - HEMOGLOBIN 8.9 g/dL (14.0-18.0); LYMPHOCYTES # (AUTO) 1.7 10^3/uL (1.5-3.5); LYMPHOCYTES % (AUTO) 16.9 %; MEAN CORPUSCULAR HEMOGLOBIN 28.3 pg (27.0-31.0); MEAN CORPUSCULAR VOLUME 91.4 fL (80.0-94.0); MEAN PLATELET VOLUME 11.4 fL (7.4-11.4); MONOCYTES # (AUTO) 0.6 10^3/uL (0.0-1.0); MONOCYTES % (AUTO) 6.3 %; NEUTROPHILS # (AUTO) 7.1 10^3/uL (1.5-6.6); NEUTROPHILS % (AUTO) 70.8 %; PLT - PLATELET COUNT 166 10^3/uL (130-450); RED BLOOD COUNT 3.14 10^6/uL (4.70-6.10); RED CELL DISTRIBUTION WIDTH 18.9 % (12.0-15.0); WHITE BLOOD COUNT 10.1 x10^3/uL (4.8-10.8)
[2019-01-09 05:49] LABS: ALBUMIN 2.7 g/dL (3.2-5.5); CALCIUM 8.7 mg/dL (8.5-10.3); CREATININE 1.3 mg/dL (0.6-1.2); PHOSPHORUS 3.9 mg/dL (2.5-4.6)
[2019-01-09] MEDS: SUCRALFATE 1 GM/10 ML UDC PO SCH ×4 (06:06→21:27)
[2019-01-09] MEDS: PANTOPRAZOLE 40 MG VIAL IVP SCH (06:13)
[2019-01-09] MEDS: SODIUM CHLORIDE FLUSH 0.9% 10 ML SYRINGE IVP SCH ×3 (06:13→17:07)
[2019-01-09] MEDS: SODIUM CHLORIDE FLUSH 0.9% 10 ML SYRINGE IVP PRN (06:13)
[2019-01-09] MEDS ORDERED: NON FORMULARY MED (Allopurinol [Allopurinol] 300 MG) PO SCH (09:00)
[2019-01-09] MEDS: SACCHAROMYCES BOULARDII 250 MG CAPSULE PO SCH ×2 (10:27→17:07)
[2019-01-09] MEDS: predniSONE 20 MG TABLET PO SCH ×2 (10:28→20:56)
[2019-01-09] MEDS: ASPIRIN EC 81 MG TABLET PO SCH (10:28)
[2019-01-09] MEDS: hydroCHLOROthiazide 25 MG TABLET PO SCH (10:28)
[2019-01-09] MEDS: MULTIVITAMIN W/MINERALS TABLET PO SCH (10:28)
[2019-01-09] MEDS: ATENOLOL 25 MG TABLET PO SCH ×2 (10:28→20:55)
[2019-01-09] MEDS: ALLOPURINOL 100 MG TABLET PO SCH (10:28)
[2019-01-09] MEDS: OXYBUTYNIN 5MG TABLET PO SCH ×2 (10:28→20:56)
[2019-01-09] MEDS: DOCUSATE SODIUM 250 MG CAPSULE PO SCH (10:28)
[2019-01-09] MEDS: MULTIVITAMIN TABLET PO SCH (10:29)
[2019-01-09] MEDS: POLYETHYLENE GLYCOL 3350 17 GM PACKET PO SCH (10:29)
[2019-01-09] MEDS: FUROSEMIDE 40 MG TABLET PO SCH (10:29)
[2019-01-09] MEDS: amLODIPine 5 MG TABLET PO SCH (10:29)
--- NOTE | 2019-01-09 14:32 | PROVIDER PROGRESS NOTE ---
Subjective - Prog Note Date Prog Note Date: 01/09/19 Prog Note Time: 14:29 - Subjective Pt reports feeling: Improved (from tight edema/pain in legs but new ulcers) Objective - Vital Signs/Intake & Output Reviewed Vital Signs: Yes Vital Signs: Vital Signs x48h Temp Pulse Pulse Resp BP Pulse Ox 01/09/19 13:29 36.6 C 76 18 138/60 H 96 01/09/19 11:26 36.5 C 88 20 98 01/09/19 11:18 69 18 01/09/19 08:00 36.5 C 78 20 134/58 H 94 Intake & Output: Intake & Output 01/06/19 01/07/19 01/08/19 01/09/19 23:59 23:59 23:59 23:59 Intake Total 100 1428 360 Output Total 1205 2050 1625 Balance -1105 -622 -1265 - Objective General Appearance: positive: No acute distress, Alert, Other (Elderly white male with Flo-[place], balding, unshaven faces, deformed facies from childhood injury at the age of 3, low hoarse voice. Sitting upright in his chair. Just ate breakfast. Main complaint is pain in his legs where he has new ulcers now that his edema has resolved.) Eyes Bilateral: positive: PERRL, EOMI ENT: positive: Other (Hoarse voice, slightly deformed facial symmetry in the right side from a childhood accident and reconstructive surgery) Neck: positive: No JVD Respiratory: positive: Chest non-tender, Wheezes (Faint, scattered, and not always present. He is trying to use his Acapella valve and that seems to make him cough more.). negative: Rales, Rhonchi Cardiovascular: positive: Regular rate & rhythm, Systolic murmur. negative: Gallop/S4, Friction rub Abdomen: positive: Non-tender, No organomegaly, Nml bowel sounds, No distention Skin: positive: Warm, Dry Extremities: positive: Other (The edema has subsided substantially. He is left foot shrunken wrinkled legs. Unfortunately the skin tightness and stretching resulted in sloughing of his skin over his anterior shins. Right leg worse than left leg. On the back of his left leg, the calf is sloughed some skin. But again, the edema is much, much improved. Overall leg pain in the muscles is almost completely gone.) Neurologic/Psychiatric: positive: Oriented x3, CN's nml (2-12), Motor nml, Weakness - Lab Results Fish Bones: 01/09/19 05:15 01/09/19 05:15 Other Labs: Lab Results x24hrs 01/09/19 01/09/19 01/07/19 Range/Units 05:15 05:15 20:05 WBC 10.1 (4.8-10.8) x10^3/uL RBC 3.14 L (4.70-6.10) 10^6/uL Hgb 8.9 L (14.0-18.0) g/dL Hct 28.7 L (42.0-52.0) % MCV 91.4 (80.0-94.0) fL MCH 28.3 (27.0-31.0) pg MCHC 31.0 L (32.0-36.0) g/dL RDW 18.9 H (12.0-15.0) % Plt Count 166 (130-450) 10^3/uL MPV 11.4 (7.4-11.4) fL Neut # (Auto) 7.1 H (1.5-6.6) 10^3/uL Lymph # (Auto) 1.7 (1.5-3.5) 10^3/uL [place] # (Auto) 0.6 (0.0-1.0) 10^3/uL Eos # (Auto) 0.5 (0.0-0.7) 10^3/uL Baso # (Auto) 0.0 (0.0-0.1) 10^3/uL Absolute Nucleated RBC 0.00 x10^3/uL Nucleated RBC % 0.0 /100WBC Sodium 138 (135-145) mmol/L Potassium 3.6 (3.5-5.0) mmol/L Chloride 99 L (101-111) mmol/L Carbon Dioxide 32 (21-32) mmol/L Anion Gap 7.0 (6-13) BUN 45 H (6-20) mg/dL Creatinine 1.3 H (0.6-1.2) mg/dL Estimated GFR (MDRD) 53 L (>89) Glucose 96 (70-100) mg/dL Calcium 8.7 (8.5-10.3) mg/dL Phosphorus 3.9 (2.5-4.6) mg/dL Albumin 2.7 L (3.2-5.5) g/dL Crossmatch IS Only See Detail ABX Reporting Has patient been on IV antibiotics over the past 48 hours?: Yes Sepsis Event Note (H) - Evaluation Current Stage of Sepsis: Ruled out Possible source of Sepsis: positive: Skin/soft tissue - Sepsis Criteria Sepsis Criteria: WBC count greater than 12,000 or less than 4000 Assessment/Plan - Problem List (1) Bilateral lower extremity edema Impression: Patient presenting with bilateral lower extremity numbness with associated edema which initially thought to be cellulitis given the white count at 16 K, pain to left lower extremity with an venous ultrasound showing negative. Unclear at this point if this is infection. However, was given 1 dose of Rocephin IV. 2 sets of blood cultures obtained. Patient does not have a fever or other signs and symptoms of sepsis at this point. Likely pointing in the direction of underlying peripheral arterial disease combined with pedal edema that may come from what we thought was diastolic heart failure despite BNP of 90. Echo with normal left ventricular size and function, ejection fraction 70%. Left atrium n ormal. Severe pulmonary hypertension with a PASP of 62 mmHg. Mild RVH with normal function. Mild to moderate tricuspid regurgitation. Contraindication for SCDs in the setting of edema as well as heparin in the setting of patient's anemia. Placed on Lasix 40 mg p.o. daily and he responded well. Wound care to follow, as well as arterial doppler with flow. Cramps of muscles also present. As of this note, he is (-)2992 since admission. No weights have been recorded.With today's exam, new skin loss is evident over his shins and lateral calves. The skin sloughed off after being stretched tight from edema. Plan: continue to hold off on abx since no cellulitis treat as chf and ECHO demonstrates acute on chronic right sided heart failure. continue to elevate legs check OFELIA. Ordered. Done and results not interpreted yet. 1 gram of magnesium sulfate done for cramps and those are improved as well. RN protocol for dressings implemented. No wound consult for now. Will need home health wound care. His leg pain and edema have improved tremendously but he is weak, tired. Will order PT eval. Plan for dc to home in am. (2) Interstitial edema Conclusion/Plan: Patient's chest x-ray shows right midlung interstitial edema. In the setting of an elevated white count this may represent pneumonia, however patient denies fever cough and does mention shortness of breath and dyspnea on exertion that may be related to diastolic heart failure. Patient will be on Lasix for diuresis. Echocardiogram as above. Defer off IV antibiotics for now. Plan: treat as CHF No left sided CHF felt to be present as of now. Qualifiers: Edema type: unspecified Qualified Code(s): R60.9 - Edema, unspecified (3) Occult GI bleeding Conclusion/Plan: Patient does have a history of abdominal surgeries in the past, Including small bowel resection for prior abscesses, in [place], [place] 2 years prior. Patient denies having a prior endoscopy or colonoscopy in the past. Guaiac positive in the ER, may be related to internal hemorrhoids versus chronic GI blood loss anemia. Patient's prior hemoglobin was 13.1. Would defer off aspirin or DVT prophylaxis with heparin/Lovenox for now. Would place on IV PPI plus Carafate. General surgery to consult for possible colonoscopy if drops in H&H observed. This morning Hgb 9.6>8.8>8.9 as such stable. (4) Chronic kidney disease, stage III (moderate) Conclusion/Plan: Patient's prior baseline is 1.3-1.7. Avoid nephrotoxic agents, hydrochlorothiazide on hold, will be on Lasix due to pedal edema, correct underlying electrolyte disturbances. With this admission 1.4 > 1.3 (5) General weakness Conclusion/Plan: Multifactorial at this point. Work-up in progress. (6) Hypertension, uncontrolled Conclusion/Plan: Will place on IV hydralazine prn and depending if diastolic heart failure is underlying, may benefit from afterload reduction. He was 160 systolic on admission. After that he has been in the 130s to 140s systolic and 58-60 diastolic. (7) Macrocytic anemia with iron deficiency anemia, anemia of chronic disease Conclusion/Plan: Guaiac positive in the ED. Multifactorial with possible underlying anemia of chronic disease. Laboratory Tests 01/08/19 01/08/19 05:15 05:15 Iron 36 L TIBC 274 % Saturation 13 L Transferrin 196 Vitamin B12 < 50 L Folate 11.13 TSH 2.73 Transfuse if <8 g/d. Start oral iron.
[2019-01-09] MEDS: FERROUS GLUCONATE 324 MG TABLET PO SCH (17:07)
[2019-01-09] MEDS: DOXAZOSIN 4 MG TABLET PO SCH (20:55)
[2019-01-09] MEDS ORDERED: DOXAZOSIN 4 MG TABLET PO SCH (21:00)
[2019-01-10] MEDS: PANTOPRAZOLE 40 MG VIAL IVP SCH (06:25)
[2019-01-10] MEDS: SODIUM CHLORIDE FLUSH 0.9% 10 ML SYRINGE IVP PRN (06:25)
[2019-01-10] MEDS: SUCRALFATE 1 GM/10 ML UDC PO SCH ×2 (06:25→10:32)
[2019-01-10] MEDS: SODIUM CHLORIDE FLUSH 0.9% 10 ML SYRINGE IVP SCH ×2 (06:25→10:32)
[2019-01-10] MEDS: POLYETHYLENE GLYCOL 3350 17 GM PACKET PO SCH (10:28)
[2019-01-10] MEDS: OXYBUTYNIN 5MG TABLET PO SCH (10:29)
[2019-01-10] MEDS: hydroCHLOROthiazide 25 MG TABLET PO SCH (10:29)
[2019-01-10] MEDS: ASPIRIN EC 81 MG TABLET PO SCH (10:29)
[2019-01-10] MEDS: ATENOLOL 25 MG TABLET PO SCH (10:30)
[2019-01-10] MEDS: MULTIVITAMIN W/MINERALS TABLET PO SCH (10:30)
[2019-01-10] MEDS: FUROSEMIDE 40 MG TABLET PO SCH (10:30)
[2019-01-10] MEDS: ALLOPURINOL 100 MG TABLET PO SCH (10:30)
[2019-01-10] MEDS: predniSONE 20 MG TABLET PO SCH (10:30)
[2019-01-10] MEDS: FERROUS GLUCONATE 324 MG TABLET PO SCH (10:31)
[2019-01-10] MEDS: DOCUSATE SODIUM 250 MG CAPSULE PO SCH (10:31)
[2019-01-10] MEDS: MULTIVITAMIN TABLET PO SCH (10:31)
[2019-01-10] MEDS: SACCHAROMYCES BOULARDII 250 MG CAPSULE PO SCH (10:32)
[2019-01-10] MEDS: amLODIPine 5 MG TABLET PO SCH (10:32)
--- NOTE | 2019-01-10 11:46 | Ultrasound Report ---
Reason: SUSPECTED PAD Procedure Date: 01/08/2019 Accession Number: [id number] / [id number] Procedure: US - Duplex Lwr Ext Arterial Bilat CPT Code: FULL RESULT: EXAM: BILATERAL LOWER EXTREMITY ARTERIAL DOPPLER ULTRASOUND EXAM DATE: 01/08/2019 12:38 AM. CLINICAL HISTORY: Lower extremity swelling. Peripheral arterial disease. COMPARISON: None. TECHNIQUE: Real-time sonographic vascular imaging was performed by the health claims examiner, utilizing color-flow, Doppler flow, and spectral analysis. Multiple data entry representative static images were saved for review. FINDINGS: Multifocal calcified plaques are seen bilaterally. Flow is mostly biphasic. No focal significant stenosis is identified. No occlusion is seen. Right Leg: MACHINIST MATE: PSV 131 cm/sec. Biphasic waveform. PSFA: PSV 67.2 cm/sec. Biphasic waveform. MSFA: PSV 46 cm/sec. Biphasic waveform. DSFA: PSV 39 cm/sec. Biphasic waveform. PFA: PSV 82 cm/sec. Biphasic waveform. POP: PSV 32 cm/sec. Biphasic/Triphasic waveform. CRISTINA: PSV 36 cm/sec. Monophasic waveform. HOSPITAL MEDICAL ASSISTANT: PSV 37 cm/sec. Biphasic waveform. PER: PSV 17 cm/sec. Biphasic waveform. DPA: PSV 37 cm/sec. Monophasic waveform. Left Leg: MACHINIST MATE: PSV 96 cm/sec. Biphasic waveform. PSFA: PSV 65 cm/sec. Biphasic waveform. MSFA: PSV 113 cm/sec. Biphasic waveform. DSFA: PSV 113 cm/sec. Biphasic waveform. PFA: PSV 59 cm/sec. Biphasic waveform. POP: PSV 71 cm/sec. Biphasic waveform. CRISTINA: PSV 72 cm/sec. Biphasic waveform. HOSPITAL MEDICAL ASSISTANT: PSV 147 cm/sec. Biphasic waveform. PER: PSV 60 cm/sec. Biphasic/Triphasic waveform. DPA: PSV 48 cm/sec. Biphasic waveform. IMPRESSION: 1. Multifocal calcified plaques bilaterally without focal significant stenosis or occlusion. RADIA
[2019-01-10] MEDS ORDERED: CYANOCOBALAMIN 1,000 MCG/ML VIAL IM ONE (11:53)
--- NOTE | 2019-01-10 11:53 | Discharge Plan ---
Discharge Plan Problem Reviewed?: Yes Disposition: 06 Home Health Service Condition: Good Prescriptions: RX: amLODIPine [Norvasc] 5 mg PO DAILY #30 tablet Furosemide [Lasix] 40 mg PO DAILY #30 tablet Diet: Low Sodium Activity Restrictions: Activity as Tolerated Shower Restrictions: No Driving Restrictions: No Assistance Devices: Walker Instruction Topics: Heart Failure Warning Signs, Heart Failure Tracking Weight, Hypertension Pulmonary Health Concerns: You were admitted to the hospital because of painful, swollen, very stretched tight legs. We found you to have severe high blood pressure in your lungs causing the pump system in your heart to fail and you have right-sided congestive heart failure. The swelling in your legs stretched your skin so tightly that when your legs trunk down, the skin split and now you have lost skin on the top of your shins and behind her calves. You now have some skin ulcers.The other problem we found a new was a very, very low B12 level. You have had multiple abdominal surgeries and parts of your small bowel (which absorb B12) have been removed. As such, even if you take B12 by mouth, you will not absorb it. We gave you a 1000 mcg injection before you left. Plan of Treatment: While in the hospital you received a lot of medicine to make you urinate. This allowed your body to get rid of all of the excess fluid, shrink down your legs. Care Goals: 1. You will need wound care for the ulcers that you have developed on your leg. I have ordered home health for wound care to see you in your home. IN the meantime, wash your legs every day, then gently dry them. Place Mepeplex dressing on them for the day and keep clean and dry. 2. You are also weaker and more deconditioned because of the congestive heart failure and physical therapy will see you in your home 3. Please follow-up with your primary care provider Dr. Rodriguez in the next 1 to 2 weeks 4. Start once a month B12 injection. Assessment: That you understand, I am repeat back these instructions. No Smoking: If you smoke, Please STOP! Call for help. Follow-up with: Morteza Rodriguez MD [Primary Care Provider] -
[2019-01-10 14:04] VITALS: BP 142/102
--- NOTE | 2019-01-11 00:42 | DISCHARGE SUMMARY ---
Physician: Tiesha Ruggiero MD DATE OF ADMISSION: 01/07/2019 DATE OF DISCHARGE: 01/10/2019 PRIMARY CARE PROVIDER: Morteza Rodriguez MD in [place], Fax number [phone]. DISCHARGE DIAGNOSES 1. Bilateral lower extremity edema. 2. 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 3. Pulmonary hypertension, moderate to severe. 4. Fecal occult blood positive stool. 5. Acute on chronic stage 3 chronic kidney disease. 6. Generalized weakness. 7. Uncontrolled hypertension. 8. Macrocytic anemia. 9. Iron deficiency anemia. DISCHARGE MEDICATIONS 1. Allopurinol 300 mg a day. This gentleman is on chronic allopurinol with a GFR of 49-53. Strongl y suggested that his allopurinol be adjusted for renal failure by his PCP. 2. Aspirin 81 mg a day. 3. Atenolol 25 mg a day. 4. Cardura 4 mg in the evening. 5. Hydrochlorothiazide 25 mg a day. 6. Indomethacin 25-50 mg p.o. b.i.d. p.r.n. for gout. 7. Multivitamins daily. 8. Omeprazole 20 mg daily. 9. Ditropan 5 mg b.i.d. 10. Prednisone 20 mg p.o. b.i.d. 11. Norvasc 5 mg daily. 12. Lasix 40 mg a day. PRINCIPAL PROCEDURES 1. Echocardiogram: Normal left ventricular size and function with an ejection fraction of 70%. The left atrium is normal. Severe pulmonary hypertension with a PASP of 62 mmHg. Mild RVH with normal function. Mild to moderate tricuspid regurgitation, otherwise normal bowel function. 2. Venous duplex study: Bilateral lower extremities without deep vein thrombosis. 3. Duplex scan lower extremity arterial showing multifocal calcified plaques bilaterally without foc al significant stenosis or occlusion. 4. Chest x-ray with hyperinflated lungs, interstitial infiltrate right midlung new compared to prior exam of 07/14/2016. 5. Blood cultures, no growth after two days. HOSPITAL COURSE: He is an 83-year-old man who has a past medical history of hypertension, COPD, seiz ure disorder, and abdominal surgery that consisted of a perforated bowel, as a result of multiple abs cesses two years prior, nephrolithiasis, chronic kidney disease stage III, who presents with one-day history of bilateral painful lower extremity swelling with associated numbness, pain in the leg left more than right, no history of trauma. He does have some orthopnea with dyspnea on exertion without chest pain. He has been not feeling well the last few days. Even though he only endorses swelling f or the last day, his and children endorse that he has probably been having gradually worsening e tanja for two weeks. He denies any history of alcohol abuse. He denies any problems with melena, hem atochezia, hematemesis. He has had a recent episode of gout and was treated with indomethacin, taper ed steroids and allopurinol. In the emergency room, he was evaluated by Dr. Burr, who felt that his bilateral lower extremity ed jolene and tense skin with an elevated white cell count was suggestive of cellulitis. He did not have a fever. The rest of his hospital course consisted of evaluation and treatment for the painful swollen legs. We felt that the patient had more suggestion of heart failure and edema than true cellulitis. What Lana Burr was seeing in the emergency room was probably venous stasis dermatitis. We obtained an ech ocardiogram, which showed him to have severe pulmonary hypertension and most likely right-sided heart failure. This is a new diagnosis for him. Treatment consisted of mainly diuresis and elevation of the legs. He was able to diurese quite vigorously and weight was initially 63 kilograms on admission . Decreased to 59.5 kg at discharge. The tight shiny legs with tense, tense edema and oozing skin i mproved tremendously. By discharge, his legs were shrunken and shriveled from the lack of the edema. Unfortunately, the skin popped and he lost skin over the shins and the back of his left calf. Thos e were treated with simple dressing changes of a gel with see-through covering on top. He will need home health followup for wound care. 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 His cannot drive. He is now deconditioned and has decreased mobility becaus e of the weakness and congestive heart failure. As such, I am asking for home health for wound care at discharge. In addition to the right-sided heart failure, we found him to have fecal occult blood-positive stool. He has a macrocytic anemia. His lab indices have an iron that is low at 36, TIBC 274, percent satu ration 13, transferrin 196. B12 was very low at less than 50, folate is 11.13 and TSH is normal. He was started on ferrous gluconate. He has also received 1000 mg of B12 before he leaves. This gentl eman denies any history of alcohol abuse. In the outpatient setting, he should be considered for eit her anemia of chronic disease, workup for fecal occult blood positive stool with a colonoscopy or EGD , and probable malabsorption because of multiple small bowel surgeries and resections. If it is stefani bsorption, he will need monthly B12 shots, and probable monthly infusion of iron. The other thing th at should be looked that is the fact that he is on aspirin, indomethacin, steroids for gout. This ge ntleman is a definite risk for ulcer disease and may still need an EGD even if the feeling is that he has malabsorption from small bowel resections. We found him to have uncontrolled hypertension during his stay and as such, we added Norvasc to his b lood pressure regime. He is on Cardura, hydrochlorothiazide and now Lasix for his congestive heart f ailure and then we added the Norvasc. He should be seen in followup for his blood pressure. We migh t want to stop the hydrochlorothiazide since he is going to be on the Lasix for the right-sided heart failure. He is going to be on Lasix 40 mg a day for the next week and I would strongly suggest that we reduce that to 20 mg a day and check a BMP and a BNP in the next one to two weeks with a kaya hansen check with his primary care provider. Again, he was weak, tired, had some generalized deconditioning. He was seen by physical therapy and during his therapy was short of breath, weak. Able to follow cues, but had a very short attention sp an. He guarded and grimaced because of bilateral leg pain. That was his main complaint when he came in, but he was very specific in saying that his leg pain had improved tremendously by the time of kathe acuña. Mainly pain was now centered around where he lost his skin in his shins. He did drop his b lood pressure to 128/92 upon standing indicating orthostatic hypotension, but he did not report any d izziness or unsteadiness. He had 96% on room air. Able to ambulate 75 feet with contact guard edgardo t and was able to navigate some steps, but was exhausted at the end of it. As such, he is sent home with wound care and physical therapy through home health. At discharge, he is an alert, oriented, elderly gentleman, very short crew cut hair, but male pattern baldness. Low hoarse voice. 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 Temperature is 37.2, pu lse is 65, blood pressure is 130/68, respirations 16, 94% on room air. He had coarse upper airway so unds, but no crackles, rhonchi or wheezing. No increased respiratory effort with speaking. Comforta ble at rest. PMI normally placed with a regular rate and rhythm. The abdomen is soft, scaphoid, nont raj. Extremities are, again, quite shrunken from what they were on admission. On admission, they were tight, very swollen, skin was shiny, and he was oozing serous fluid. Now, they have shrunken do wn to normal size, but they are quite wrinkled at the skin. He does not have chronic venous stasis d ermatitis changes yet. He has lost the skin of his shins on both legs with the left more than the ri ght. A small loss of skin on the back left calf. He walks with a slow, shuffling gait, but no ataxi a. Contact guard assist. Greater than 30 minutes was spent in coordinating discharge. Again, he should get a B12 shot in a mo nth, be seen in one to two weeks for followup of his right-sided congestive heart failure and adjustm ent of his diuretics with a lab check. cc: Morteza Rodriguez MD TD: 01/10/2019 19:24
== END 2019-01-10 13:22 | disposition home health service (06) | DRG 292 ==
LOC: EDUNIT# → ED 18:10 → MS2 20:20
PROVIDERS: ADMIT Family Medicine; ATTEND Specialist
DX: L03.116 Cellulitis of left lower limb (principal); L03.115 Cellulitis of right lower limb; R19.5 Other fecal abnormalities; D64.9 Anemia, unspecified; I10 Essential (primary) hypertension; Z87.891 Personal history of nicotine dependence; I13.0 Hypertensive heart and chronic kidney disease with heart failure and stage 1 through stage 4 chronic kidney disease, or unspecified chronic kidney disease; K91.2 Postsurgical malabsorption, not elsewhere classified; L97.221 Non-pressure chronic ulcer of left calf limited to breakdown of skin; L97.821 Non-pressure chronic ulcer of other part of left lower leg limited to breakdown of skin; L97.811 Non-pressure chronic ulcer of other part of right lower leg limited to breakdown of skin; R25.2 Cramp and spasm; I50.813 Acute on chronic right heart failure; N18.3 Chronic kidney disease, stage 3 (moderate); I27.20 Pulmonary hypertension, unspecified; I95.1 Orthostatic hypotension; D51.9 Vitamin B12 deficiency anemia, unspecified; D50.9 Iron deficiency anemia, unspecified; I07.1 Rheumatic tricuspid insufficiency; J44.9 Chronic obstructive pulmonary disease, unspecified; M10.9 Gout, unspecified; Y83.6 Removal of other organ (partial) (total) as the cause of abnormal reaction of the patient, or of later complication, without mention of misadventure at the time of the procedure; Z86.69 Personal history of other diseases of the nervous system and sense organs; Z79.899 Other long term (current) drug therapy; Z79.82 Long term (current) use of aspirin; Z79.52 Long term (current) use of systemic steroids; Z79.1 Long term (current) use of non-steroidal anti-inflammatories (NSAID)
CPT/HCPCS: 36415; 71045; 80053; 80069; 82607; 82746; 83540; 83605; 83690; 83880; 84443; 84466; 85025; 86850; 86900; 86901; 86920; 87040; 93306; 93925; 93970; 94640; 96365; 96375; 97161; 99284; A9270; J7040; J7512